=== PATIENT | male | born 1955 | race Caucasian/White ===

== ENCOUNTER 2023-08-01 16:16 | Emergency (ER) | payer OTHER, SELFPAY ==
[2023-08-01 16:20] VITALS: BP 167/97
--- NOTE | 2023-08-01 16:57 | ED.GENMED ---
History of Present Illness
General
Chief Complaint: Swallowing Problem
Source: patient and spouse
Exam Limitations: none
Time Seen by Provider: 08/01/23 16:30
Nursing documentation reviewed up to this point in time: agreed with
Travel History
Have you had any contact with someone who has COVID-19?: No
Do you have any symptoms of coronavirus? Fever > 100 degrees, chills, cough, shortness of breath, sore throat, loss of taste or smell, muscle aches, or headache?: No
History of Present Illness
History of Present Illness:
Patient is a 68-year-old male who presents to the emergency department with an inability to swallow after eating chicken approximately 2 hours prior to the emergency department. Patient feels as though something stuck in his chest. Patient has
frequent heartburn according to his . Patient gets things stuck there frequently but usually passes after few minutes. Just as I came into the room patient thinks it may have passed. Patient denies shortness of breath, chest pain or coughing.
Patient denies any nausea, vomiting, diarrhea, weight loss, melena or hematochezia. Patient denies fever or chills. Patient denies smoking.
Past History
Past History
ED Past Medical History: HTN and Hypercholesterolemia
ED Past Surgical History: Appendectomy and Cholecystectomy
Social History
Tobacco: Non-smoker
Review of Systems
Review of Systems
All Other Systems: Not applicable
Phy Exam
Physical Exam
Physical Exam:
Physical Exam
General: No apparent distress, alert and appropriate, well nourished, well hydrated
HENT: Normocephalic, supple with no lymphadenopathy, no thyromegaly. Oropharynx is clear
Eyes: Clear sclera, conjuctiva without injection
Heart: Regular rhythm and rate. No S3, S4. No murmur.
Lungs: No respiratory distress, no stridor, lung sounds clear and equal bilaterally
Abdomen: Soft, nontender, no organomegaly, BS good
Neuro: Alert and oriented x 3, CN II - XII intact, no motor focality, no cerebellar dysfunction
Skin: no rash
Psychiatric: well kept. interactive and cooperative
Extremities: No edema, cyanosis
Course
Vital Signs
Initial and Last Documented VS:
Initial Vital Signs
Temp Pulse Resp BP Pulse Ox
97.8 F 75 18 167/97 98
08/01/23 16:20 08/01/23 16:20 08/01/23 16:20 08/01/23 16:20 08/01/23 16:20
Last Documented Vital Signs
Temp Pulse Resp BP Pulse Ox
97.8 F 75 18 167/97 98
08/01/23 16:20 08/01/23 16:20 08/01/23 16:20 08/01/23 16:20 08/01/23 16:20
*Radiology
Radiology exam reviewed: other (na)
*Pulse Oximetry
Patient hypoxic: no
*EKG
Interpreted by ED Provider?: NA
*Chuck Tender Interpretation
Rate: Chuck Tender- N/A
*Critical Care Note
Total Time (30-74mins, 75-104mins- exclusive of procedures): Not Applicable
Update Note
Update Note:
Patient was able to drink water. Appears the obstruction was cleared. Patient will be put on Prevacid. Patient referred to GI.
ED Attending Note
-
Portions of this chart may have been created with voice recognition software.� Occasional wrong word or��sound alike� substitutions may have occurred due to the inherent limitations of voice recognition software.
Discharge Plan
Departure
Patient Disposition: Home (Routine Discharge)
Date of Disposition: 08/01/23
Time of Disposition: 17:00
Patient with high blood pressure during this ER visit?: Yes
Condition: Good
Covid-19: Not Applicable
Discharge Problem:
Acute esophageal obstruction
Instructions: Acid Reflux and GERD in Adults (DC), Food Obstruction, BLOOD PRESSURE
Prescriptions:
New
lansoprazole [Prevacid] 30 mg capsule,delayed release(DR/EC)
30 mg PO DAILY Qty: 30 0RF
Referrals:
Vi Back MD [Active] - Call in 1-3 days for appt
Interventions
Interventions:
*Risk Screen - Suicide Last Done: 08/01/23 16:50
*General Assessment Last Done: 08/01/23 16:20
*Neglect/Abuse Screening Last Done: 08/01/23 16:50
*ED COVID-19 Vaccine History Last Done: 08/01/23 16:20
ED-EENT Assessment Last Done: 08/01/23 16:47
ST-Tivvkn-Hqaoperlcg Assessment Last Done: 08/01/23 16:47
ED- Pulmonary Assessment Last Done: 08/01/23 16:45
ED- Neurological Assessment Last Done: 08/01/23 16:45
ED Swallowing Screen Last Done: 08/01/23 16:48
== END 2023-08-01 17:35 | disposition home or self-care (01) ==
LOC: EMR 16:16
PROVIDERS: EMERGENCY PHYSICIAN Emergency Medicine
DX: K22.2 Esophageal obstruction (principal); R13.10 Dysphagia, unspecified; I10 Essential (primary) hypertension; E78.00 Pure hypercholesterolemia, unspecified; Z90.49 Acquired absence of other specified parts of digestive tract
CPT/HCPCS: 99282